=== PATIENT | male | born 1995 | race African-American/Black ===

== ENCOUNTER 2019-06-24 19:39 | Emergency (ER) | payer MEDICAID ==
[~2019-06-24] VITALS: Ht 185.4 cm; Wt 77.1 kg
[2019-06-24 19:37] VITALS: BP 135/72
--- NOTE | 2019-06-24 19:37 | NUR ---
ED Nurse Note: pt walked in to ed for c/o productive cough with greenish mucus since last night. pt also reports pain to bilateral eye due to meth getting into his eye.
--- NOTE | 2019-06-24 19:44 | NUR ---
ED Nurse Note: dr miller at tent assessing pt.
--- NOTE | 2019-06-24 19:48 | Emergency Room Report ---
History of Present Illness General Chief Complaint: Upper Respiratory Illness Source: Patient Present Illness HPI Disclaimer: Please note that this report is being documented using DRAGON technology. This can lead to erroneous entry secondary to incorrect interpretation by the dictating instrument. HPI: 23-year-old male history of polysubstance abuse presents for evaluation of cough and eye pain. The patient originally checked into the emergency department complaining of eye pain after meth irritated his eyes while smoking last night. He then complained of coughing and green sputum. He denies nasal congestion, sore throat, fever, chills, fatigue, chest pain, abdominal pain, nausea, vomiting, diarrhea or rash. Last used meth overnight. At the time of my evaluation he is not complaining of any eye pain and denies any changes in his vision, foreign body sensation, changes in his visual bonner or lid swelling. PMH: Substance abuse PSH: Denies Allergies: Tylenol Social Hx: Methamphetamine use, tobacco use Allergies: Uncoded Allergies: ACETAMENOPHEN (Allergy, Unknown, 06/24/19) COVID-19 Screening Contact w/high risk pt: No Recent Travel to affected area: No Experienced COVID-19 symptoms?: Yes COVID-19 symptoms experienced: Cough COVID-19 Testing performed WHEEL TRUER: No Nursing Documentation-PMH Past Medical History: No History, Except For Hx Diabetes: Yes Review of Systems All Other Systems: negative except mentioned in HPI Physical Exam Vital Signs Date Time Temp Pulse Resp B/P (MAP) Pulse Ox O2 Delivery O2 Flow Rate FiO2 06/24/19 19:32 98.8 98 18 135/72 (93) 97 Room Air General: Awake and alert, no acute distress HEENT: NC/AT. EOMI. Cardiovascular: RRR. S1 and S2 normal. No murmur appreciated Resp: Normal work of breathing. No cough, wheezing or crackles appreciated Abdomen: Abdomen is soft, nondistended. Nontender Skin: Intact. No abrasions, laceration or rash over the exposed skin MSK: Normal tone and bulk. Moving all extremities. No obvious deformity. Neuro: Awake and alert. Mentating appropriately. Medical Decision Making Diagnostic Impression: Primary Impression: Bronchitis ER Course 23-year-old male presents for evaluation of shortness of productive cough of 1 days duration without fever. He arrives with vital signs within normal limits and afebrile. No respiratory distress. Chest x-ray was obtained does not show any infiltrate or significant abnormalities. Likely bronchitis from his recent methamphetamine use. Instructed to refrain from using any illicit drugs and refer him to outpatient treatment centers. Also referred him to primary clinics. Discussed reasons to return to the emergency department. He understands and agrees with treatment plan. Chest X-Ray Diagnostic Results Chest X-Ray Diagnostic Results : Chest X-Ray Ordered: Yes # of Views/Limited/Complete: 1 View Indication: Other - cough EP Interpretation: Yes Interpretation: no consolidation, no effusion, no pneumothorax, no acute cardiopulmonary disease Impression: No acute disease Electronically Signed by: Electronically signed by Dr. Jovany Villanueva Last Vital Signs Date Time Temp Pulse Resp B/P (MAP) Pulse Ox O2 Delivery O2 Flow Rate FiO2 06/24/19 19:37 98 18 Room Air 06/24/19 19:37 98.8 135/72 97 Disposition: HOME, SELF-CARE Condition: Stable Jovany Villanueva MD June 24, 2019 19:48
--- NOTE | 2019-06-24 19:50 | NUR ---
ED Nurse Note: cxr being done at tent
[2019-06-24 20:01] VITALS: BP 130/76
--- NOTE | 2019-06-24 20:01 | NUR ---
ER DISCHARGE NOTE: Patient is cleared to be discharged per ERMD, pt is aox4, on room air, with stable vital signs. pt was given dc and prescription instructions, pt was able to verbalize understanding, pt id band removed without complications. pt is able to ambulate with steady gait. pt took all belongings.
--- NOTE | 2019-06-24 20:03 | Diagnostic Imaging Report ---
EXAM: XR Chest, 1 View CLINICAL HISTORY: COUGH TECHNIQUE: Frontal view of the chest. COMPARISON: No relevant prior studies available. FINDINGS: Lungs: Unremarkable. No consolidation. Pleural space: No pleural effusion. No pneumothorax. Heart: Unremarkable. No cardiomegaly. IMPRESSION: No acute cardiopulmonary abnormality.
== END 2019-06-24 20:01 | disposition home or self-care (01) ==
LOC: EDBD 19:39 → EMR 19:50
DX: J20.9 Acute bronchitis, unspecified (principal); Z88.6 Allergy status to analgesic agent; F15.90 Other stimulant use, unspecified, uncomplicated; E11.9 Type 2 diabetes mellitus without complications
CPT/HCPCS: 71045; Z7502; 99283